=== PATIENT | male | born 1955 | race Caucasian/White ===

== ENCOUNTER → 2023-02-27 09:09 | Outpatient (CLI) | payer MEDICARE, OTHER, SELFPAY ==
--- NOTE | 2023-02-27 09:11 | DI.RAD.S_ITS ---
PROCEDURE: XR LUMBAR SPINE MIN 4V INDICATIONS: low back pain status post fusion TECHNIQUE: 5 views of the lumbar spine were acquired, including bilateral oblique views. COMPARISON: [facility], CR, XR LUMBAR SPINE 2 OR 3 VIEWS, 05/27/2021, 11:52. FINDINGS: Bones: Five nonrib-bearing vertebrae are present. Transpedicular fusion hardware and sacroiliac joint fusion bilaterally. Interval removal of right L1 and L2 transpedicular screws and the upper portion of the fusion alexis. Mild lucency surrounds the right L4 and L5 screw, although this appears in stable position. There are no acute hardware fractures. Disc spacers are present. L3 through L5 lumbar vertebral bodies are not discretely seen. There is severe disc height loss at T12-L1, progressed compared to the prior study. There is normal bony alignment. No vertebral body compression fractures. No suspicious bony lesions. Soft tissues: Overlying bowel gas pattern is normal. No suspicious soft tissue calcifications. Brachytherapy seeds in the prostate region. IMPRESSION: 1. Interval removal of the right upper lumbar hardware. 2. Development of severe T12-L1 disc disease. 3. Possible screw loosening at right L4 and L5. Dictated by: Cindy Villa M.D. on 02/27/2023 at 12:25 Approved by: Cindy Villa M.D. on 02/27/2023 at 12:29
== END ==
PROVIDERS: Family Provider Family Medicine; PCP Internal Medicine; Referring Provider Physical Medicine & Rehabilitation; Visit Provider Physical Medicine & Rehabilitation
DX: M16.0 Bilateral primary osteoarthritis of hip (principal); M51.9 Unspecified thoracic, thoracolumbar and lumbosacral intervertebral disc disorder; G58.8 Other specified mononeuropathies; L40.50 Arthropathic psoriasis, unspecified; Z98.1 Arthrodesis status
CPT/HCPCS: 72110; 99213